=== PATIENT | male | born 1950 | race Caucasian/White ===

== ENCOUNTER 2021-04-06 23:21 | Emergency (ER) | payer SELFPAY | END 2021-04-07 00:08 | disposition left against medical advice (07) | LOC: ER 23:21 | DX: Z53.21 Procedure and treatment not carried out due to patient leaving prior to being seen by health care provider (principal) | CPT/HCPCS: 99281 ==

== ENCOUNTER 2023-09-18 12:17 | Emergency (ER) | payer SELFPAY ==
[~2023-09-18] VITALS: Ht 165.1 cm; Wt 82.0 kg
[2023-09-18 12:31] VITALS: O2SAT 100
[2023-09-18 13:16] LABS: BASOPHILS % 0.5 % (0.0-2.0); EOSINOPHILS % 0.8 % (0.0-5.0); HEMOGLOBIN. 17.1 g/dL (14.0-18.0); LYMPHOCYTES % 12.3 % (20.0-50.0); MEAN CORPUSCULAR HEMOGLOBIN 33.1 pg (28.0-32.0); MEAN CORPUSCULAR HGB CONC 34.2 g/dL (31.0-37.0); MEAN CORPUSCULAR VOLUME 96.7 fL (80.0-94.0); MEAN PLATELET VOLUME 8.6 fl (7.4-10.4); MONOCYTES % 7.1 % (2.0-8.0); NEUTROPHILS % 79.3 % (40.0-76.0); PLATELET 245 x1000/uL (130-400); RED BLOOD CELL COUNT 5.17 mill/uL (4.7-6.1); RED CELL DISTRIBUTION WIDTH 14.7 % (11.6-14.6); WHITE BLOOD COUNT 10.3 x1000/uL (4.5-11.0)
[2023-09-18 13:32] LABS: ALANINE AMINOTRANSFERASE 80 IU/L (10-49); ALBUMIN 5.3 g/dL (3.2-4.8); ASPARTATE AMINOTRANSFERASE 77 IU/L (<34); BILIRUBIN TOTAL 1.3 mg/dL (0.1-1.0); CALCIUM 9.7 mg/dL (8.7-10.4); CARBON DIOXIDE 19 mEq/L (21-32); CHLORIDE 103 mEq/L (98-107); GLUCOSE 307 mg/dL (70-105); PROTEIN TOTAL 8.5 g/dL (6.0-8.3); SODIUM 135 mEq/L (136-145); UREA NITROGEN BLOOD 13 mg/dL (9-23)
[2023-09-18] MEDS ORDERED: ONDA4TAB11 PO (14:28)
[2023-09-18] MEDS ORDERED: LACT1TAB6 MT (14:28)
[2023-09-18] MEDS ORDERED: ONDANSETRON 4MG ODT PO ONE (14:30)
[2023-09-18] MEDS ORDERED: DICYCLOMINE HCL 10MG CAPSULE PO ONE (14:30)
[2023-09-18] MEDS: DICYCLOMINE HCL 10MG CAPSULE PO NR (14:45)
[2023-09-18] MEDS: ONDANSETRON 4MG ODT PO NR (14:45)
[2023-09-18] MEDS: SODIUM CHLORIDE 0.9% 1,000 ML IV ONE (15:00)
[2023-09-18 16:26] VITALS: BP 102/58; PULSE 78; RESP 20; TEMP 98
== END 2023-09-18 16:27 | disposition home or self-care (01) ==
LOC: ER 12:17
DX: K52.9 Noninfective gastroenteritis and colitis, unspecified (principal); E11.9 Type 2 diabetes mellitus without complications; I10 Essential (primary) hypertension
CPT/HCPCS: 80053; 83690; 85025; 36415; 96360; 99283; Q0162; Z7610 ×2